=== PATIENT | female | born 1965 | race Caucasian/White ===

== ENCOUNTER → 2018-07-06 12:28 | Outpatient (CLI) | payer OTHER, SELFPAY ==
--- NOTE | 2018-07-06 12:33 | BI_ITS ---
MAMMOGRAPHY - BILATERAL SCREENING REASON FOR EXAM: Female, 53 years old. Routine annual screening examination. PERTINENT HISTORY: Non-contributory. TECHNIQUE: Digital bilateral breast salomon (3D mammographic acquisition) in the CC and MLO projections. 2-D mediolateral oblique (MLO) and craniocaudad (CC) views of both breasts were obtained. CAD: Full Field Digital Mammography with Computer Added Detection was performed. COMPARISON: Comparison is made with prior study dated November 11, 2016 and September 12, 2012. FINDINGS: Breast Composition: The breasts are heterogeneously dense, which may obscure small masses. There are no dominant masses or suspicious calcifications. No other significant abnormalities are identified. There has been no significant change since the prior study. BI/Bilat Brst Screen Salomon Add-On IMPRESSION: Stable bilateral screening mammogram. Yearly follow-up mammogram recommended. (A) ASSESSMENT CATEGORY: BIRADS Category 1: Negative. A letter regarding these results will be sent to the patient by the facility within 30 days. Approximately 10% of breast cancers are not detected by mammography. A normal mammogram should not delay biopsy of a clinically suspicious abnormality. [id number] Electronically Signed: Efra Soliz MD at 14:16 EDT Tel [phone], Service support ,
--- NOTE | 2018-07-06 12:33 | BI_ITS ---
MAMMOGRAPHY - BILATERAL SCREENING REASON FOR EXAM: Female, 53 years old. Routine annual screening examination. PERTINENT HISTORY: Non-contributory. TECHNIQUE: Digital bilateral breast keven (3D mammographic acquisition) in the CC and MLO projections. 2-D mediolateral oblique (MLO) and craniocaudad (CC) views of both breasts were obtained. CAD: Full Field Digital Mammography with Computer Added Detection was performed. COMPARISON: Comparison is made with prior study dated November 11, 2016 and September 12, 2012. FINDINGS: Breast Composition: The breasts are heterogeneously dense, which may obscure small masses. There are no dominant masses or suspicious calcifications. No other significant abnormalities are identified. There has been no significant change since the prior study. BI/SCREENING MAMM (CAD), BILAT IMPRESSION: Stable bilateral screening mammogram. Yearly follow-up mammogram recommended. (A) ASSESSMENT CATEGORY: BIRADS Category 1: Negative. A letter regarding these results will be sent to the patient by the facility within 30 days. Approximately 10% of breast cancers are not detected by mammography. A normal mammogram should not delay biopsy of a clinically suspicious abnormality. [id number] Electronically Signed: Efra Soliz MD at 14:16 EDT Tel [phone], Service support ,
== END ==
PROVIDERS: Family Provider Family Medicine; PCP Family Medicine; Referring Provider Family Medicine; Visit Provider Family Medicine
DX: Z12.31 Encounter for screening mammogram for malignant neoplasm of breast (principal)
CPT/HCPCS: 77063; 77067

== ENCOUNTER → 2018-08-29 13:05 | Outpatient (CLI) | payer OTHER, SELFPAY ==
--- NOTE | 2018-08-29 13:28 | RAD_ITS ---
STUDY: X-RAY - RIGHT HIP REASON FOR EXAM: Female, 53 years old. Trochanteric bursitis. TECHNIQUE: 2 views of the hip. COMPARISON: None. FINDINGS: Normal femoral head, neck, intertrochanteric region and visualized proximal femur. Normal acetabulum. Normal hip joint. Normal visualized superior and inferior pubic rami and ischial tuberosities. Surgical clips are seen consistent with previous left hernia repair There is no demonstrated hip fracture. RAD/HIP, UNI W/ Pelvis 2-3 Views IMPRESSION: Normal x-ray examination of the hip. Electronically Signed: Dion Barclay MD at 23:54 EST , Service support ,
== END ==
PROVIDERS: Family Provider Family Medicine; PCP Family Medicine; Referring Provider Family Medicine; Visit Provider Family Medicine
DX: M70.61 Trochanteric bursitis, right hip (principal)
CPT/HCPCS: 73502

== ENCOUNTER 2019-08-08 09:00 | Outpatient (RCR) | payer OTHER, SELFPAY ==
--- NOTE | 2019-07-02 16:06 | HP.PTEVAL_ITS ---
Patient's Visit Information CYRIL TALAVERA is a 54 year old F referred to Physical Therapy by Nghia Ospina MD with a diagnosis of R ITB Syndrome. Date of Evaluation: 07/02/19 Physical Therapist: Meme Larose DPT - Visit Plan Frequency: 2x /Week Duration: 4 Weeks Plan: Focus on general hip/core strengthening/stabilization, SL balance training, LE flexibility, functional exercises to return to running/hiking. - Subjective Findings: R hip pain started a year ago, no SUSANNE. Has been running for 5-6 years, running seems to make pain worse so has backed off a bit. Pain at R lateral hip & as day goes on can ruRestn down outside of leg to knee. When pain started, just tried to rest it with little effect. Went to 06/25/19 - x-rays negative, belived muscle in hip needed to be strengthened. Describes pain as a deep burning. Worst: 5-6/10 with a busy day. Aggravtes: Stairs, running, walking, going uphill, yoga. Best: Pain free at times Relieving Factors: rest, icy-hot. N/T sometimes all the way down the mid calf. Meño radiating pain down the leg. Pain does radiate into R Lower back at times. 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 Exercise: Walk 30 min-45 min/day, yoga for most day, Golfing 9-18 holes, walks (no cart). Hiking: hills, but mostly even ground. Used to run 3 days a week, 5k distance (last attempt was in January, but hurt too bad after), running ion hard surface. Attempted elliptical in winter, but did not change much. Typical Activities: gardening, ADL's, no pain w/ these. Two- story home, no pain w. those steps. PMH/Meds: - Objective Posture: RS, FH corrected w/ v/c unable to manitain. Stairs: Reciprocal, slight hip drop B, pain (asc>desc), no HR. Gait: Slight B trendelenburg. HR/TR Walk: WNL. SLS; L 30 seconds, R - 5 secondsbefore LOB d/t pain, corrected w/ other LE. Squat: no pain. ROM: ANkle/Knee, Hips: WFL (pain w/ abduction, IR/ER). Strength: Ankle 5/5, Knee Ext 5/5, Flex 4/5, Hip 4/5 throughout (pain at lateral hip w/ all hip strength testing except for Ext. Rot.). Sesnation: WNL to gross B touch. Palpation: TTP at R Greater Trochanter. Flexibility: Gastroc: mild, Hamstring: Mild Miguel: mod. LLD: WNL - Goals Goal 1:: Pt. will be I w/ HEP & progression Goal Time Frame: 4-6 Weeks Goal 2:: Pt. will demo 5/5 R hip strength Goal Time Frame: 4-6 Weeks Goal 3:: Pt. will demo R SLS for 30 seconds w/ no UE assist Goal 4:: Pt. will maintain proper posture t/o tx session to demo increased core s/s Goal Time Frame: 4-6 Weeks Goal 5:: Pt. will report 0/10 pain w/ activities for 1 week. Goal Time Frame: 4-6 Weeks - Rehabilitation Potential Physical Therapy Diagnosis: Presents w/ hypomobility, poor hip strength, core weakness, impaired hip flexibility, and pain which leads to difficulty performing physical acitvities. Rehabilitation Potential: Good - Anticipated Interventions Patient/Client Instruction: Educate patient on: Condition For the Purpose of:: To decrease pain Therapeutic Exercise to Include: Strength training, Endurance training, Balance training, Agility training, Postural training, Flexibilty training, Active ROM, Dynamic Lumbar Stabilization For the Purpose of:: To improve muscle performance and motor function Thermo therapy (hot pack): Yes Ultrasound (thermal/non thermal): Yes For the Purpose of:: To decrease pain Thank you for the opportunity to evaluate your patient. For Medicare and Medicare HMO plans, please review the plan of care and approve it. It will need to be FAXED BACK to us at [phone] for Medicare purposes. For Medicare only, by signing this I certify the plan of care. Please let me know if there are questions or concerns regarding this plan of care. Physician Signature: Date:
--- NOTE | 2019-09-10 14:32 | HP.PT.NRP ---
HP - Discharge Summary (1) - Patient Information CYRIL TALAVERA was seen in my office for initial evaluation on 07/02/19. The following Plan of Care was established for this patient: Initial Frequency: 2x /Week Initial Duration: 4 Weeks - Anticipated Interventions Patient/Client Instruction: Educate patient on: Condition For the Purpose of:: To decrease pain Therapeutic Exercise to Include: Strength training, Endurance training, Balance training, Agility training, Postural training, Flexibilty training, Active ROM, Dynamic Lumbar Stabilization For the Purpose of:: To improve muscle performance and motor function Thermo therapy (hot pack): Yes Ultrasound (thermal/non thermal): Yes For the Purpose of:: To decrease pain This patient was last seen in our office . Pertinent comments regarding their Physical therapy will appear below: Patient has not attended physical therapy in over 4 weeks- appropriate for d/c and return to MD as appropriate. At this point I will be discontinuing this patient from physical therapy. I would be happy to see this patient again in the future if found appropriate by the physician. Thank you! Meme Larose DPT
== END 2019-08-08 19:00 | disposition home or self-care (01) ==
LOC: PT 09:00
PROVIDERS: Family Provider Family Medicine; PCP Family Medicine; Referring Provider Family Medicine; Visit Provider Family Medicine
DX: M76.31 Iliotibial band syndrome, right leg (principal); M62.81 Muscle weakness (generalized)
CPT/HCPCS: 97110; 97161

== ENCOUNTER → 2019-10-30 13:47 | Outpatient (CLI) | payer OTHER, SELFPAY ==
[2019-10-30 16:20] LABS: Anion Gap 5 (5-15); BUN 7 mg/dL (7-18); BUN/Creat Ratio 10.5 RATIO (10-20); Calcium,Total 9.8 mg/dL (8.5-10.1); Chloride 105 mmol/L (98-107); Cholesterol 234 mg/dL (200); Creatinine, Serum 0.67 mg/dL (0.55-1.02); EST Glomerular Filtration Rate 98 mL/min (>60); Est Glom Filt Rate - Afr Amer 119 mL/min (>60); Glucose 65 mg/dL (74-106); High Density Lipoprotein 124 mg/dL; Sodium Level 139 mmol/L (136-145); Triglycerides 35 mg/dL; Very Low Density Lipoprotein 7 mg/dL (5-40)
[2019-10-30 16:26] LABS: Vitamin D,25 Hydroxy 27.7 ng/mL (29.95-100.01)
== END ==
PROVIDERS: PCP Family Medicine; Referring Provider Family Medicine; Visit Provider Family Medicine
DX: M70.61 Trochanteric bursitis, right hip (principal); Z13.220 Encounter for screening for lipoid disorders
CPT/HCPCS: 36415; 80048; 80061; 82306

== ENCOUNTER 2021-02-16 17:51 | Emergency (ER) | payer OTHER, SELFPAY ==
[2021-02-16 17:52] VITALS: BP 159/96; PULSE 63; RESP 18; TEMP 36.4; O2SAT 98; BMI 22.3
--- NOTE | 2021-02-16 18:41 | EDS_ITS ---
HPI HPI - Psych History of Present Illness Chief Complaint: Mental Health Informant: patient Onset/Context/Timing Onset: Month(s) (1) Context: Gradual Onset Timing: Continuous and Waxes and wanes Associated Symptoms Associated Symptoms - Psych: Positive for Depressed, Change in Eating, Change in sleeping and Suicidal Thoughts; Negative for Visual Hallucinations and Auditory Hallucinations Specific plan (suicidal thought): Patient denies any plan for suicide Narrative Narrative: Patient presents with depression that has been getting progressively worse over the past month. Patient states she was recently started on Effexor. Patient states this seemed to make her symptoms worse. Patient states she has intermittent suicidal thoughts but denies any plan. Patient states she just feels like she has suicidal thoughts so that she can end her depression. Patient denies any visual or auditory hallucinations. PFSH PFSH Home Medications citalopram [Celexa] 10 mg PO DAILY 02/16/21 [History Last Taken Unknown] diazepam 5 mg PO PRN PRN 02/16/21 [History Last Taken Unknown] Allergy/AdvReac Type Severity Reaction Status Date / Time venlafaxine [From Effexor] AdvReac Other Verified 02/16/21 17:52 Surgical History History of hernia surgery Social History Smoking Status: Never smoker ROS ROS ED Constitutional Constitutional ED: Denies chills or fever(s) Eyes Eyes: Denies blurry vision or change in vision ENT ENT ED: Denies rhinorrhea or sore throat Cardiovascular Cardiovascular: Denies chest pain or palpitations Respiratory/Chest Respiratory/Chest: Denies cough or dyspnea Gastrointestinal Gastrointestinal: Reports nausea; Denies vomiting Genitourinary Genitourinary ED: Denies dysuria or hematuria Musculoskeletal Musculoskeletal: Denies back pain or neck pain Integumentary Denies abscess or rash Neurologic Neurologic: Denies headache(s) or weakness Psychiatric Psychiatric: Reports anxiety, depression and suicidal thoughts Allergic/Immunologic Allergic/Immunologic ED: Denies mouth swelling or urticaria EXAM Physical Exam Const Vital Signs: 02/16/21 17:52 02/16/21 19:08 02/16/21 20:00 Temperature 97.6 F L Temperature Source Temporal Pulse Rate 63 Respiratory Rate 18 14 18 Blood Pressure 159/96 H Blood Pressure Mean 117 Pulse Ox 98 Oxygen Delivery Method Room Air 02/16/21 21:25 Temperature Temperature Source Pulse Rate 67 Respiratory Rate 12 Blood Pressure 146/98 H Blood Pressure Mean 114 Pulse Ox 97 Oxygen Delivery Method Positive well nourished and well developed General Appearance ED: well developed HEENT normocephalic and atraumatic Neck supple and no JVD Resp normal respiratory effort and clear to auscultation bilaterally Cardio no murmurs Rate: regular rate Rhythm: regular rhythm GI non-tender and non-distended Auscultation: normoactive bowel sounds Palpation: soft Extremity normal to inspection General Extremety ED: Negative for edema or tenderness General Extremity: Negative for edema Neuro oriented x3, CN's II-XII intact bilaterally and no sensory deficits noted Sensorium / Orientation: alert Motor Exam: strength 5/5 throughout Psych mental status grossly normal Activity / Motor Behavior: appropriate eye contact Speech: normal speech and soft Mood & Affect: sad and flat affect Thought Process: normal thought process Thought Content: suicidality Skin Rashes: no rashes MDM MDM MDM Narrative Medical decision making narrative: Patient was seen by crisis earlier today. Patient was referred to the emergency department from crisis. They feel the patient should be placed in a psychiatric facility. They are attempting to do this. Basic labs were ordered and the patient will be medically cleared. Urine tox screen was positive for benzodiazepines. COVID-19 rapid antigen was obtained and was negative. The remaining labs were all within normal limits. Patient is medically cleared. Patient will be placed in a psychiatric facility. [place] slip was placed on the chart. Patient was accepted at [facility]. Patient will be transferred there. Patient and understand and are agreeable with the plan. All questions were answered. Lab Data Attestation: I reviewed the patient's lab results. Labs: Laboratory Results - last 24 hr 02/16/21 02/16/21 02/16/21 18:00 18:30 18:30 WBC 4.7 RBC 4.70 Hgb 14.5 Hct 42.7 MCV 90.9 MCH 30.9 MCHC 34.0 RDW Std Deviation 42.7 RDW Coeff of Kael 12.9 Plt Count 225 MPV 11.7 Immature Gran % (Auto) 0.000 Neut % (Auto) 66.1 Lymph % (Auto) 23.7 [place]ontas % (Auto) 9.2 Eos % (Auto) 0.6 Baso % (Auto) 0.4 Absolute Neuts (auto) 3.1 Absolute Lymphs (auto) 1.11 Nucleated RBC % 0 Sodium 136 Potassium 3.8 Chloride 102 Carbon Dioxide 27.0 Anion Gap 7 BUN 10 Creatinine 0.61 Estim Creat Clear Calc 91.04 Est GFR (MDRD) Af Amer 130 Est GFR (MDRD) Non-Af 108 BUN/Creatinine Ratio 16.3 Glucose 89 Calcium 9.2 Serum , Qual Urine Opiates Screen NEGATIVE Urine Methadone Screen NEGATIVE Ur Barbiturates Screen NEGATIVE Ur Phencyclidine Scrn NEGATIVE Ur Amphetamines Screen NEGATIVE U Methamphetamin-MDMA NEGATIVE U Benzodiazepines Scrn POSITIVE H Urine Cocaine Screen NEGATIVE U Cannabinoids Screen NEGATIVE Ur Drug Screen Comment Ethyl Alcohol 02/16/21 02/16/21 18:30 18:30 WBC RBC Hgb Hct MCV MCH MCHC RDW Std Deviation RDW Coeff of Kael Plt Count MPV Immature Gran % (Auto) Neut % (Auto) Lymph % (Auto) [place] % (Auto) Eos % (Auto) Baso % (Auto) Absolute Neuts (auto) Absolute Lymphs (auto) Nucleated RBC % Sodium Potassium Chloride Carbon Dioxide Anion Gap BUN Creatinine Estim Creat Clear Calc Est GFR (MDRD) Af Amer Est GFR (MDRD) Non-Af BUN/Creatinine Ratio Glucose Calcium Serum , Qual NEGATIVE Urine Opiates Screen Urine Methadone Screen Ur Barbiturates Screen Ur Phencyclidine Scrn Ur Amphetamines Screen U Methamphetamin-MDMA U Benzodiazepines Scrn Urine Cocaine Screen U Cannabinoids Screen Ur Drug Screen Comment Ethyl Alcohol < 3.0 Discharge Plan Triage Chief Complaint: Mental Health ED Provider: Pablo Baker Dx/Rx/DC Orders Clinical Impression: Depression with suicidal ideation Prescriptions: No Action citalopram [Celexa] 10 mg tablet 10 mg PO DAILY RF: 0 diazepam 5 mg tablet 5 mg PO PRN PRN (Reason: Anxiety) RF: 0 Primary Care Provider: Ramo Sagastume Referrals: Ramo Sagastume MD [Primary Care Provider] - Disposition Disposition: Psychiatric Hospital or Unit Discharge Location: [facility] Discharge Date/Time: 02/16/21 21:26
[2021-02-16 18:50] LABS: Absolute Lymphocyte Count 1.11 X10^3/uL (0.83-4.51); Absolute Neutrophil Count 3.1 X10^3/uL (2.0-7.7); Basophil# 0.02 X10^3/uL; Basophil% 0.4 % (0-1); Eosinophil# 0.03 X10^3/uL; Eosinophils% 0.6 % (0-5); Hematocrit 42.7 % (37-47); Hemoglobin 14.5 g/dL (12.0-15.0); Lymphocyte # 1.11 X10^3/ul (0.83-4.51); Lymphocyte % 23.7 % (19-41); Mean Corpuscular Hgb 30.9 pg (27.0-32.0); Mean Corpuscular Volume 90.9 fL (81-99); Mean Platelet Vol. 11.7 fl (6.2-12.0); Monocyte# 0.43 X10^3/uL; Monocyte% 9.2 % (0-10); NRBC Flagged by Analyzer 0 % (0-5); Neutrophil # 3.09 X10^3/uL (2.7-7.7); Neutrophil % 66.1 % (47-70); Platelet Count 225 K/mm3 (150-450); RBC Distribution Width CV 12.9 % (11.6-14.6); RBC Distribution Width SD 42.7 fl (35.1-43.9); White Blood Count 4.7 K/mm3 (4.4-11.0)
[2021-02-16 19:03] LABS: Anion Gap 7 (5-15); BUN 10 mg/dL (7-18); BUN/Creat Ratio 16.3 RATIO (10-20); Calcium,Total 9.2 mg/dL (8.5-10.1); Chloride 102 mmol/L (98-107); Creatinine, Serum 0.61 mg/dL (0.55-1.02); EST Glomerular Filtration Rate 108 mL/min (>60); Est Glom Filt Rate - Afr Amer 130 mL/min (>60); Estimated Creatinine Clearance 91.04 ml/min; Glucose 89 mg/dL (74-106); Potassium 3.8 mmol/L (3.5-5.1); Sodium Level 136 mmol/L (136-145)
[2021-02-16 19:05] LABS: Amphetamine Urine VISTA NEGATIVE (<1000 ng/mL); Barbiturate Urine VISTA NEGATIVE (< 200 ng/mL); Benzodiazepine Urine VISTA POSITIVE (< 200 ng/mL); Cocaine Urine VISTA NEGATIVE (< 300 ng/mL); Ecstacy Urine VISTA NEGATIVE (< 500 ng/mL); Methadone Urine VISTA NEGATIVE (< 300 ng/mL); PCP Urine VISTA NEGATIVE (< 25 ng/mL); THC Urine VISTA NEGATIVE (< 50 ng/mL); Vista UDS pH Range 6
[2021-02-16 19:08] VITALS: RESP 14
[2021-02-16 19:09] LABS: Internal QC Validated? YES +Cl - CLEAR BKGD; Pregnancy, Serum, hCG Quali. NEGATIVE Negative; Record Kit Lot#, Serum Preg. 42100
[2021-02-16 19:13] LABS: Alcohol, Blood (Medical)-Serum < 3.0 mg/dL
--- NOTE | 2021-02-16 19:26 | CM.ED ---
MARQUEZ Note: Referral Source : [facility] ([facility]) Crisis Ref[facility]: [facility] SW received call from [facility] Egg Factory Worker, Luana. She advised that patient is being sent to [facility] for medical clearance. Patient is suicidal with plan. [facility] is requesting inpatient hospitalization. updated regarding patient and need for inpatient psych hospitalization.departmental shipping clerk updated about plan for inpatient psychiatric hospitalization. MARQUEZ faxed medical assessment of patient to [facility]. MARQUEZ called [facility] and advised it would be faxed to their office for review. Plan: [facility] has advised that they will be working on placement. Karina DOHERTY
--- NOTE | 2021-02-16 19:35 | ED.RN ---
REPORT FAXED TO CRISIS
[2021-02-16 20:00] VITALS: RESP 18
[2021-02-16 21:25] VITALS: BP 146/98; PULSE 67; RESP 12; O2SAT 97
--- NOTE | 2021-02-17 10:14 | CM.ED ---
SW Note SW Referral Source: RN MARQUEZ Referral Reason: Patient's ask RN why can't we just leave and had questions regarding insurance. RN advised that patient's was asking about leaving and not staying for placement. SW called [facility] ([facility]) and was advised referral was made to [facility]. Waiting approval from [facility] per [facility]. [facility] advised that they will find out when/if patient is approved if it is in network. SW update MD and MD signed pink slip. SW met with patient and patient's . They were updted on status of patient's referral. They asked questions regarding insurance and this creative services writer explained to that [facility] made referral and we are waiting for [facility] to update if [facility] was in network. Patient's said that she could not afford placement if they were out of network. SW explained pink slip and patient could not leave. SW discussed with patient that she needs treatment and that will assist her in feeling better. Patient and voiced no issues or concerns. Patient's thanked this creative services writer for update. Plan: Inpatient psychiatric treatment determined by [facility]. SW to remain available. Karina DOHERTY
== END 2021-02-16 21:26 ==
LOC: ED 18:19
PROVIDERS: Emergency Provider Emergency Medicine; PCP Family Medicine
DX: F32.9 Major depressive disorder, single episode, unspecified (principal); R45.851 Suicidal ideations; Z79.899 Other long term (current) drug therapy
CPT/HCPCS: 36415; 80048; 80307; 82077; 84703; 85025; 87426; 99285

== ENCOUNTER → 2021-02-26 14:31 | Outpatient (CLI) | payer OTHER, SELFPAY ==
[2021-02-16 17:52] VITALS: BMI 22.3
== END ==
PROVIDERS: PCP Family Medicine; Referring Provider Family Medicine; Visit Provider Family Medicine
DX: F41.9 Anxiety disorder, unspecified (principal)
CPT/HCPCS: 36415; 84443

== ENCOUNTER → 2021-11-25 16:27 | Outpatient (CLI) | payer OTHER, SELFPAY ==
[2021-11-25 17:31] LABS: Hematocrit 46.3 % (37-47); Hemoglobin 15.3 g/dL (12.0-15.0); Mean Corpuscular Hgb 30.1 pg (27.0-32.0); Mean Platelet Vol. 11.4 fl (6.2-12.0); Platelet Count 282 K/mm3 (150-450); RBC Distribution Width SD 43.7 fl (35.1-43.9); Red Blood Count 5.09 M/mm3 (4.2-5.4); White Blood Count 5.7 K/mm3 (4.4-11.0)
[2021-11-25 17:46] LABS: Erythrocyte Sedimentation Rate 2 mm/hr (0-30)
[2021-11-25 17:58] LABS: ALB/GLOB Ratio 1.1 RATIO (0.9-2.4); AST(SGOT) 19 U/L (15-37); Alanine Aminotransfer ALT/SGPT 20 U/L (13-56); Alkaline Phosphatase 51 U/L (45-117); Anion Gap 5 (5-15); BUN 7 mg/dL (7-18); BUN/Creat Ratio 9.8 RATIO (10-20); Calcium,Total 9.7 mg/dL (8.5-10.1); Chloride 101 mmol/L (98-107); Creatinine, Serum 0.71 mg/dL (0.55-1.02); EST Glomerular Filtration Rate 90 mL/min (>60); Est Glom Filt Rate - Afr Amer 109 mL/min (>60); Ferritin 89 ng/mL (8-252); Free T3 2.7 pg/mL (2.18-3.98); Globulin 3.6 g/dL (2.2-4.2); Glucose 74 mg/dL (74-106); Iron 87 ug/dL (50-170); Iron Binding Capacity,Total 349 ug/dL (250-450); PERCENT IRON SATURATION 24.9 % (15.0-55.0); Potassium 4.1 mmol/L (3.5-5.1); Protein, Total 7.6 g/dL (6.4-8.2); Sodium Level 136 mmol/L (136-145); T4 Free Direct 1.06 ng/dL (0.76-1.46); Thyroid Stim Hormone (TSH) 2.32 uIU/mL (0.358-3.74)
[2021-11-26 09:58] LABS: Hepatitis C Antibody Non-Reactive (Nonreactive); Vitamin B12 155 pg/mL (211-911)
== END ==
PROVIDERS: PCP Family Medicine
DX: F19.10 Other psychoactive substance abuse, uncomplicated (principal); R53.83 Other fatigue; Z79.899 Other long term (current) drug therapy
CPT/HCPCS: 36415; 80053; 82607; 82728; 83540; 83550; 84439; 84443; 84481; 85027; 85652; 86803

== ENCOUNTER → 2024-05-03 | Outpatient (CLI) | payer OTHER, SELFPAY ==
[2024-05-03 12:56] LABS: Vitamin B12 228 pg/mL (211-911); Vitamin D,25 Hydroxy 49.5 ng/mL
[2024-05-03 13:00] LABS: ALB/GLOB Ratio 0.9 RATIO (0.9-2.4); AST(SGOT) 28 U/L (15-37); Alanine Aminotransfer ALT/SGPT 30 U/L (13-56); Albumin, Serum 3.4 g/dL (3.2-5.0); Alkaline Phosphatase 54 U/L (45-117); Anion Gap 6 (5-15); BUN 12 mg/dL (7-18); BUN/Creat Ratio 17.7 RATIO (10-20); Calcium,Total 9.2 mg/dL (8.5-10.1); Chloride 106 mmol/L (98-107); Cholesterol 207 mg/dL (200); Creatinine, Serum 0.68 mg/dL (0.55-1.02); EST Glomerular Filtration Rate 95 mL/min (>60); Est Glom Filt Rate - Afr Amer 115 mL/min (>60); Follicle Stimulating Hormone 58.1 mIU/mL; Globulin 3.7 g/dL (2.2-4.2); Glucose 87 mg/dL (74-106); High Density Lipoprotein 78 mg/dL; Luteinizing Hormone 24.9 mIU/mL; Potassium 4.1 mmol/L (3.5-5.1); Protein, Total 7.1 g/dL (6.4-8.2); Sodium Level 138 mmol/L (136-145); Thyroid Stim Hormone (TSH) 1.35 uIU/mL (0.358-3.74); Triglycerides 40 mg/dL; Very Low Density Lipoprotein 8 mg/dL (5-40)
== END | disposition home or self-care (01) ==
PROVIDERS: PCP Family Medicine; Visit Provider Family Medicine
DX: R03.0 Elevated blood-pressure reading, without diagnosis of hypertension (principal); R23.2 Flushing; E53.8 Deficiency of other specified B group vitamins; E55.9 Vitamin D deficiency, unspecified
CPT/HCPCS: 36415; 80053; 80061; 82306; 82533; 82607; 83001; 83002; 84443